=== PATIENT | male | born 1945 | race Caucasian/White ===

== ENCOUNTER 2020-01-06 14:05 | Emergency (ER) | payer MEDICARE, SELFPAY ==
[2020-01-06 14:14] VITALS: BP 140/85; PULSE 70; RESP 18; TEMP 36.5; O2SAT 97; BMI 28.3
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
[2020-01-06] MEDS: TET,DIPH,PERTUSS(ACELL),VAC/PF 0.5 ML SYRINGE IM (14:41)
[2020-01-06] MEDS: LIDOCAINE/PRILOCAINE 5 GM TOP (14:42)
[2020-01-06] MEDS: BACITRACIN OINT 0.9 GM PCKT 2 APPLIC TOP (15:28)
[2020-01-06 15:40] VITALS: BP 157/84; PULSE 64; RESP 18; O2SAT 98
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
== END 2020-01-06 15:41 | disposition home or self-care (01) ==
PROVIDERS: Emergency Provider Nurse Practitioner Family; PCP Family Medicine
DX: S01.01XA Laceration without foreign body of scalp, initial encounter (principal); S09.90XA Unspecified injury of head, initial encounter; R42 Dizziness and giddiness; W21.89XA Striking against or struck by other sports equipment, initial encounter; Z23 Encounter for immunization
CPT/HCPCS: 12004; 70450; 90471; 99283; 99284; 90715